=== PATIENT | female | born 1990 | race Caucasian/White ===

== ENCOUNTER 2018-09-17 19:15 | Inpatient (IN) | payer MEDICAID ==
[~2018-09-17] VITALS: Ht 162.6 cm; Wt 68.0 kg
[~2018-09-17 19:15] MED LIST: ACET-2619 PO; FERR325E14 PO; PREN-385 PO
[2018-09-17 20:11] VITALS: BP 103/61
[2018-09-17] MEDS ORDERED: NALBUPHINE 10 MG/ML AMP IVP SCH (20:30)
[2018-09-17 20:44] LABS: BASOPHILS % (AUTO) 0.4 % (0.0-2.0); EOSINOPHILS # (AUTO) 0.1 K/uL (0-0.4); EOSINOPHILS % (AUTO) 0.8 % (0.0-4.0); HEMATOCRIT 38.2 % (36-48); HEMOGLOBIN 12.5 g/dL (12.0-16.0); LYMPHOCYTES # (AUTO) 1.9 K/uL (2.5-16.5); LYMPHOCYTES % (AUTO) 16.8 % (20.5-51.1); MEAN CORPUSCULAR HEMOGLOBIN 30 pg (27-31); MEAN CORPUSCULAR HGB CONC 33 g/dL (33-37); MEAN CORPUSCULAR VOLUME 91.5 fL (80-94); MONOCYTES # (AUTO) 0.8 K/uL (0.8-1.0); MONOCYTES % (AUTO) 7.1 % (1.7-9.3); NEUTROPHILS # (AUTO) 8.4 K/uL (1.8-7.7); NEUTROPHILS % (AUTO) 74.9 % (42.2-75.2); PLATELET COUNT (AUTO) 145 K/uL (140-450); RED BLOOD CELL COUNT(AUTO) 4.17 MIL/uL (4.20-5.40); RED CELL DISTRIBUTION WIDTH 12.9 % (11.6-13.7); WHITE BLOOD COUNT (AUTO) 11.2 K/uL (4.8-10.8)
[2018-09-17] MEDS: LACTATED RINGERS 1,000 ML IV SCH (21:07)
[2018-09-17] MEDS ORDERED: TERBUTALINE 1 MG/ML VIAL SUBQ ONE (21:14)
[2018-09-17] MEDS: TERBUTALINE 1 MG/ML VIAL SUBQ SCH ×2 (21:16→21:58)
[2018-09-17 21:19] LABS: PROTHROMBIN TIME 9.3 secs (10.8-13.4)
[2018-09-17 23:44] LABS: APPEARANCE,URINE SLIGHTLY HAZY (CLEAR); BILIRUBIN,URINE NEGATIVE (NEGATIVE); BLOOD, URINE TRACE (NEGATIVE); COLOR,URINE YELLOW (YELLOW); LEUKOCYTE ESTERASE ,URINE NEGATIVE (NEGATIVE); NITRITE, URINE NEGATIVE (NEGATIVE); PH,URINE 6.5 (5.0-9.0); UGLUCOSE NEGATIVE (NEGATIVE)
[2018-09-17 23:45] LABS: RBC,URINE 3-10 (FEW) /HPF (0-5); WBC,URINE 0-5 (RARE) /HPF (0-5)
[2018-09-18] MEDS: LACTATED RINGERS 1,000 ML IV SCH (02:53)
== END 2018-09-18 14:00 | disposition home or self-care (01) | DRG 566 ==
LOC: MLD 19:15
PROVIDERS: ADMIT Obstetrics & Gynecology; ATTEND Obstetrics & Gynecology
DX: O26.893 Other specified pregnancy related conditions, third trimester (principal); Z3A.36 36 weeks gestation of pregnancy
CPT/HCPCS: 36415; 76815; 81001; 85025; 85379; 85384; 85610; 85730; J3105; J7120; Q0092

== ENCOUNTER 2018-10-16 09:55 | Inpatient (IN) | payer MEDICAID ==
[~2018-10-16] VITALS: Ht 165.1 cm; Wt 77.1 kg
[2018-10-16 12:09] LABS: APPEARANCE,URINE CLEAR (CLEAR); BILIRUBIN,URINE SMALL (NEGATIVE); BLOOD, URINE NEGATIVE (NEGATIVE); COLOR,URINE YELLOW (YELLOW); LEUKOCYTE ESTERASE ,URINE NEGATIVE (NEGATIVE); NITRITE, URINE NEGATIVE (NEGATIVE); UGLUCOSE NEGATIVE (NEGATIVE)
== END 2018-10-16 15:15 | disposition home or self-care (01) | DRG 566 ==
LOC: MLD 09:55
PROVIDERS: ADMIT Obstetrics & Gynecology; ATTEND Obstetrics & Gynecology
DX: O26.899 Other specified pregnancy related conditions, unspecified trimester (principal); Z3A.00 Weeks of gestation of pregnancy not specified
CPT/HCPCS: 59025; 76815; 81003; C1758; Q0092

== ENCOUNTER 2018-10-22 10:03 | Observation (INO) | payer MEDICAID ==
[~2018-10-22] VITALS: Ht 165.1 cm; Wt 77.1 kg
[~2018-10-22 10:03] MED LIST changes: -ACET-2619 PO
--- NOTE | 2018-10-22 10:27 | NUR ---
PATIENT HAS BEEN SCREENED AND CATEGORIZED LOW NUTRITION RISK. PATIENT WILL BE SEEN WITHIN 7 DAYS OF ADMISSION. 10/29/18 RAMANDEEP HUGHES MS, RDN
[2018-10-22 10:47] VITALS: BP 104/65
== END 2018-10-22 13:00 | disposition home or self-care (01) ==
LOC: MLD 10:03 → UNDOADMIN 10:03 → UNDODISIN 13:00 → EDSTATUS 10-23 11:33
PROVIDERS: ADMIT Obstetrics & Gynecology; ATTEND Obstetrics & Gynecology
DX: Z34.93 Encounter for supervision of normal pregnancy, unspecified, third trimester (principal); Z3A.38 38 weeks gestation of pregnancy
CPT/HCPCS: 76815; 81000; G0378; Q0092

== ENCOUNTER 2018-10-29 13:20 | Inpatient (IN) | payer MEDICAID ==
[~2018-10-29] VITALS: Ht 165.1 cm; Wt 77.1 kg
[2018-10-29] MEDS ORDERED: CARBOPROST 250 MCG/ML AMP IM PRN (15:55)
[2018-10-29] MEDS ORDERED: NALBUPHINE 10 MG/ML AMP IVP PRN (15:55)
[2018-10-29] MEDS ORDERED: METHYLERGONOVINE 0.2 MG/ML AMP IM PRN (15:55)
[2018-10-29] MEDS ORDERED: OXYTOCIN 10 UNITS/ML VIAL IM SCH (15:55)
[2018-10-29 16:44] LABS: BASOPHILS % (AUTO) 0.6 % (0.0-2.0); EOSINOPHILS % (AUTO) 0.6 % (0.0-4.0); HEMATOCRIT 36.4 % (36-48); HEMOGLOBIN 12.1 g/dL (12.0-16.0); LYMPHOCYTES # (AUTO) 1.6 K/uL (2.5-16.5); LYMPHOCYTES % (AUTO) 24.6 % (20.5-51.1); MEAN CORPUSCULAR HEMOGLOBIN 30 pg (27-31); MEAN CORPUSCULAR HGB CONC 33 g/dL (33-37); MEAN CORPUSCULAR VOLUME 91.2 fL (80-94); MONOCYTES # (AUTO) 0.5 K/uL (0.8-1.0); MONOCYTES % (AUTO) 8.1 % (1.7-9.3); NEUTROPHILS # (AUTO) 4.4 K/uL (1.8-7.7); NEUTROPHILS % (AUTO) 66.1 % (42.2-75.2); RED BLOOD CELL COUNT(AUTO) 3.99 MIL/uL (4.20-5.40); RED CELL DISTRIBUTION WIDTH 12.8 % (11.6-13.7); WHITE BLOOD COUNT (AUTO) 6.7 K/uL (4.8-10.8)
[2018-10-29 17:19] LABS: PLATELET COUNT (AUTO) 135 K/uL (140-450)
[2018-10-29 17:46] LABS: APPEARANCE,URINE CLEAR (CLEAR); BILIRUBIN,URINE NEGATIVE (NEGATIVE); BLOOD, URINE NEGATIVE (NEGATIVE); COLOR,URINE YELLOW (YELLOW); LEUKOCYTE ESTERASE ,URINE TRACE (NEGATIVE); NITRITE, URINE NEGATIVE (NEGATIVE); PH,URINE 6.5 (5.0-9.0); UGLUCOSE NEGATIVE (NEGATIVE)
[2018-10-29 17:52] VITALS: BP 108/63
[2018-10-29 18:04] LABS: RBC,URINE 0-5 (RARE) /HPF (0-5)
[2018-10-29] MEDS ORDERED: LIDOCAINE 1% 500 MG/50 ML VIAL INJ SCH (21:00)
[2018-10-29] MEDS: LACTATED RINGERS 1,000 ML IV SCH (23:27)
[2018-10-30] MEDS ORDERED: OXYTOCIN 20 UNITS/LR PREMIX 1,000 ML IV ONE (03:20)
[2018-10-30] MEDS: LACTATED RINGERS 1,000 ML IV SCH ×4 (04:03→18:29)
[2018-10-30] MEDS: OXYTOCIN 20 UNITS in LACTATED RINGERS 1,000 ML IV SCH (04:04)
[2018-10-30] MEDS ORDERED: BUPIVACAINE 0.125%/NS PREMIX 0 ML ONE (10:13)
[2018-10-30] MEDS ORDERED: ROPIVACAINE 0.2%/NS PREMIX 250 ML EPI ONE (10:14)
[2018-10-30] MEDS ORDERED: ROPIVACAINE 0.2%/NS PREMIX 250 ML EPI SCH (10:30)
--- NOTE | 2018-10-30 11:50 | NUR ---
PATIENT HAS BEEN SCREENED AND CATEGORIZED LOW NUTRITION RISK. PATIENT WILL BE SEEN WITHIN 7 DAYS OF ADMISSION. 11/05/18 ERASTO MORALES MBA, RD
[2018-10-30] MEDS ORDERED: BUPIVACAINE 0.125%/NS PREMIX 250 ML EPI SCH (15:10)
[2018-10-31] MEDS: LACTATED RINGERS 1,000 ML IV SCH ×4 (03:03→16:16)
[2018-10-31] MEDS: OXYTOCIN 20 UNITS in LACTATED RINGERS 1,000 ML IV SCH (04:10)
[2018-10-31] MEDS ORDERED: BUPIVACAINE 0.125%/NS PREMIX 250 ML ONE (10:40)
[2018-10-31] MEDS ORDERED: AMPICILLIN 2,000 MG VIAL ONE ×3 (16:15→23:41)
[2018-10-31] MEDS: AMPICILLIN 2,000 MG in NACL 0.9% 100 ML IV SCH ×2 (16:16→20:00)
[2018-10-31] MEDS ORDERED: DEXTROSE 10% 1,000 ML IV SCH (20:00)
[2018-10-31] MEDS ORDERED: DEXTROSE 10% 1,000 ML IV ONE (20:31)
[2018-11-01] MEDS: AMPICILLIN 2,000 MG in NACL 0.9% 100 ML IV SCH ×3 (00:07→08:33)
[2018-11-01] MEDS: LACTATED RINGERS 1,000 ML IV SCH (03:03)
[2018-11-01] MEDS ORDERED: OXYTOCIN 20 UNITS/LR PREMIX 1,000 ML IV ONE (03:20)
[2018-11-01] MEDS ORDERED: AMPICILLIN 2,000 MG VIAL ONE ×2 (03:24→08:32)
[2018-11-01] MEDS ORDERED: ROPIVACAINE 0.2%/NS PREMIX 250 ML EPI ONE (04:09)
[2018-11-01] MEDS: OXYTOCIN 20 UNITS in LACTATED RINGERS 1,000 ML IV SCH (06:25)
[2018-11-01] MEDS ORDERED: OXYTOCIN 10 UNITS/ML VIAL ONE (11:18)
[2018-11-01] MEDS ORDERED: OXYTOCIN 20 UNITS in LACTATED RINGERS 1,000 ML IV SCH (13:28)
[2018-11-01] MEDS ORDERED: BENZOCAINE/MENTHOL 20%-0.5% 60 GM CAN TP PRN (13:30)
[2018-11-01] MEDS ORDERED: MEASLES, MUMPS, AND RUBELLA 1 VIAL SQVAC PRN (13:30)
[2018-11-01] MEDS ORDERED: DOCUSATE SODIUM 100 MG GELCAP PO PRN (13:30)
[2018-11-01] MEDS ORDERED: IBUPROFEN 600 MG TAB PO PRN (13:30)
[2018-11-01] MEDS ORDERED: ACETAMINOPHEN 325 MG TAB PO PRN (13:30)
[2018-11-02 09:16] LABS: BASOPHILS % (AUTO) 0.3 % (0.0-2.0); EOSINOPHILS # (AUTO) 0.1 K/uL (0-0.4); EOSINOPHILS % (AUTO) 0.9 % (0.0-4.0); HEMOGLOBIN 10.2 g/dL (12.0-16.0); LYMPHOCYTES # (AUTO) 1.6 K/uL (2.5-16.5); LYMPHOCYTES % (AUTO) 20.2 % (20.5-51.1); MEAN CORPUSCULAR HEMOGLOBIN 30 pg (27-31); MEAN CORPUSCULAR HGB CONC 33 g/dL (33-37); MEAN CORPUSCULAR VOLUME 91.7 fL (80-94); MONOCYTES # (AUTO) 0.5 K/uL (0.8-1.0); MONOCYTES % (AUTO) 6.5 % (1.7-9.3); NEUTROPHILS # (AUTO) 5.9 K/uL (1.8-7.7); NEUTROPHILS % (AUTO) 72.1 % (42.2-75.2); PLATELET COUNT (AUTO) 103 K/uL (140-450); RED BLOOD CELL COUNT(AUTO) 3.38 MIL/uL (4.20-5.40); WHITE BLOOD COUNT (AUTO) 8.1 K/uL (4.8-10.8)
== END 2018-11-03 14:50 | disposition home or self-care (01) | DRG 560 ==
LOC: MLD 13:20 → MFCC 11-01 16:50
PROVIDERS: ADMIT Obstetrics & Gynecology; ATTEND Obstetrics & Gynecology
PROC: 10E0XZZ Delivery of Products of Conception, External Approach (ICD-10-PCS; principal; 2018-11-01)
PROC: 10907ZC Drainage of Amniotic Fluid, Therapeutic from Products of Conception, Via Natural or Artificial Opening (ICD-10-PCS; 2018-11-01)
PROC: 3E033VJ Introduction of Other Hormone into Peripheral Vein, Percutaneous Approach (ICD-10-PCS; 2018-11-01)
PROC: 0HQ9XZZ Repair Perineum Skin, External Approach (ICD-10-PCS; 2018-11-01)
PROC: 3E0R3BZ Introduction of Anesthetic Agent into Spinal Canal, Percutaneous Approach (ICD-10-PCS; 2018-11-01)
PROC: 00HU33Z Insertion of Infusion Device into Spinal Canal, Percutaneous Approach (ICD-10-PCS; 2018-11-01)
DX: O77.0 Labor and delivery complicated by meconium in amniotic fluid (principal); O63.9 Long labor, unspecified; O70.0 First degree perineal laceration during delivery; Z37.0 Single live birth; Z3A.40 40 weeks gestation of pregnancy
CPT/HCPCS: 36415; 51702; 59409; 76815; 81001; 85025; 86592; 86886; 86900; 86901; 87086; 87340; J0290; J2590; J2795; J3490; J7120; Q0092